=== PATIENT | male | born 1970 | race Native Hawaiian/Other Pacific Islander ===

== ENCOUNTER 2017-07-05 07:01 | Outpatient (CLI) | payer BC, OTHER ==
[~2017-07-05 07:01] MED LIST: AMLO5TAB4 PO; ATOR10TA PO; CHLO25TA2 PO; LOSA100T15 PO
[2017-07-05 08:24] LABS: BASOPHILS # (AUTO) 0.1 K/uL (0.0-8.0); BASOPHILS % (AUTO) 1.2 % (0.0-2.0); EOSINOPHILS # (AUTO) 0.3 K/uL (0.0-0.7); EOSINOPHILS % (AUTO) 5.4 % (0.0-7.0); HEMATOCRIT 48.5 % (40-50); HEMOGLOBIN 16.8 G/DL (14.0-18.0); LYMPHOCYTES # (AUTO) 1.7 K/UL (0.8-4.8); LYMPHOCYTES % (AUTO) 29.7 % (20.5-51.5); MEAN CORPUSCULAR HEMOGLOBIN 30.2 UUG (27.0-31.0); MEAN CORPUSCULAR HGB CONC 35 g/dL (32.0-37.0); MEAN CORPUSCULAR VOLUME 87.1 FL (82.0-92.0); MONOCYTES # (AUTO) 0.5 K/UL (0.1-1.30); MONOCYTES % (AUTO) 8.4 % (0.0-11.0); NEUTROPHILS % (AUTO) 55.3 % (38.5-71.5); PLATELET COUNT (AUTO) 271 K/UL (150-450); RED BLOOD CELL COUNT(AUTO) 5.57 MIL/UL (4.7-6.1); WHITE BLOOD COUNT (AUTO) 5.6 K/UL (4.0-11.2)
[2017-07-05 08:34] LABS: *BILIRUBIN,URIN NEGATIVE (NEGATIVE); *BLOOD, URINE NEGATIVE (NEGATIVE); *CLARITY,URINE CLEAR (CLEAR); *COLOR,URINE YELLOW (YELLOW); *KETONES,URINE NEGATIVE (NEGATIVE); *PROTEIN,URINE NEGATIVE (NEGATIVE); *UROBILINOGEN,URINE 0.2 E.U./dl (NORMAL); LEUKOCYTE ESTERASE ,URINE NEGATIVE (NEGATIVE); NITRITE, URINE NEGATIVE (NEGATIVE); PH,URINE 5.5 (5.0-8.0); UGLUCOSE NEGATIVE (NEGATIVE)
[2017-07-05 08:41] LABS: BILIRUBIN,TOTAL 0.5 mg/dL (0.2-1.0); CREATININE 1.4 mg/dL (0.6-1.3); POTASSIUM 3.3 mmol/L (3.5-5.1); TOTAL PROTEIN, SERUM 8.5 g/dL (6.4-8.2)
[2017-07-05 09:05] LABS: THYROID STIMULATING HORMONE 1.978 mIU/mL (0.358-3.740)
[2017-07-05 10:14] LABS: BACTERIA,URINE FEW /HPF (NONE SEEN); RBC,URINE NONE SEEN /HPF (0-3); SQUAMOUS EPITHELIAL CELL,UR NONE SEEN /HPF (NONE SEEN); WBC,URINE 0-3 /HPF (0-3)
== END 2017-07-05 23:59 | disposition home or self-care (01) ==
LOC: LAB 07:01
PROVIDERS: ATTEND Family Medicine
DX: Z00.01 Encounter for general adult medical examination with abnormal findings (principal); I10 Essential (primary) hypertension; E55.9 Vitamin D deficiency, unspecified
CPT/HCPCS: 36415; 82306; 84443; 85025; 87086

== ENCOUNTER → 2017-11-16 | Outpatient (CLI) | payer BC, OTHER ==
[2017-11-16 09:05] LABS: BASOPHILS % (AUTO) 0.7 % (0.0-2.0); EOSINOPHILS # (AUTO) 0.2 K/uL (0.0-0.7); EOSINOPHILS % (AUTO) 2.9 % (0.0-7.0); HEMATOCRIT 43.6 % (36.7-47.1); LYMPHOCYTES # (AUTO) 1.7 K/uL (20.0-40.0); LYMPHOCYTES % (AUTO) 25.3 % (20.5-51.5); MEAN CORPUSCULAR HEMOGLOBIN 30.4 uug (23.8-33.4); MEAN CORPUSCULAR HGB CONC 34 g/dL (32.5-36.3); MEAN CORPUSCULAR VOLUME 88.4 fL (73.0-96.2); MONOCYTES # (AUTO) 0.7 K/uL (2.0-10.0); MONOCYTES % (AUTO) 10.5 % (0.0-11.0); NEUTROPHILS % (AUTO) 60.6 % (38.5-71.5); PLATELET COUNT (AUTO) 243 K/uL (152-348); RED BLOOD CELL COUNT(AUTO) 4.93 MIL/uL (4.06-5.63); WHITE BLOOD COUNT (AUTO) 6.6 K/uL (3.6-10.2)
[2017-11-16 09:19] LABS: BILIRUBIN,TOTAL 0.6 mg/dL (0.2-1.0); CREATININE 1.3 mg/dL (0.6-1.3); POTASSIUM 3.1 mmol/L (3.5-5.1); TOTAL PROTEIN, SERUM 8.2 g/dL (6.4-8.2)
== END | disposition home or self-care (01) ==
LOC: LAB 07:55
PROVIDERS: ATTEND Family Medicine
DX: M79.671 Pain in right foot (principal)
CPT/HCPCS: 36415; 73630; 85025